=== PATIENT | female | born 1965 | race Caucasian/White ===

== ENCOUNTER 2021-03-07 14:32 | Emergency (ER) | payer MEDICARE | END 2021-03-07 19:00 | disposition home or self-care (01) | LOC: ER1 14:32 | DX: T84.022A Instability of internal right knee prosthesis, initial encounter (principal); F17.290 Nicotine dependence, other tobacco product, uncomplicated; F17.210 Nicotine dependence, cigarettes, uncomplicated; W20.8XXA Other cause of strike by thrown, projected or falling object, initial encounter | CPT/HCPCS: 27550; 73560; 73562; 93926; 99152; 99284; J2270; J2405; J2704; J3010; J7030 ==